=== PATIENT | male | born 1945 | race Caucasian/White ===

== ENCOUNTER 2020-11-28 17:57 | Inpatient (IN) ==
[2020-11-28] MEDS ORDERED: SODIUM CHLORIDE 0.9% 1,000 ML IV STA (18:47)
[2020-11-28] MEDS ORDERED: LIDOCAINE 1%/EPI INJ 20 ML VIAL ONE (18:55)
[2020-11-28] MEDS ORDERED: HEPARIN/NACL 0.9% 2 UNITS/ML 1,000 UNIT/500 ML BAG IV ONE (18:55)
[2020-11-28 18:58] LABS: Basophils # 0.1 10*3/uL (0.0-0.2); Basophils % 0.7 % (0.0-0.8); Eosinophils # 0.1 10*3/uL (0.0-0.87); Eosinophils % 1.1 % (0.00-10.9); Hematocrit 48.2 VOL% (42.0-52.0); Hemoglobin 15.9 GM/DL (14.0-18.0); Immature Granulocytes % 0.4 %; Immature Granulocytes Absolute 0.03 #; Lymphocytes # 1.5 10*3/uL (1.4-4.0); Lymphocytes % 20.7 % (21.2-54.2); Mean Corpuscular Volume 88.9 FL (87-102); Mean Platelet Volume 10.8 FL (9.6-12.0); Monocytes % 6.2 % (1.7-12.7); Neutrophils % 70.9 % (38.7-73.9); Platelet Count 159 T/CUMM (130-400); Red Blood Count 5.42 MC/CUMM (3.8-5.5); Red Cell Distribution Width 12.3 % (9.3-17.3); White Blood Count 7.2 T/CUMM (4-12)
[2020-11-28] MEDS ORDERED: fentaNYL 100 MCG/2 ML VIAL ONE (19:04)
[2020-11-28] MEDS ORDERED: MIDAZOLAM 2 MG/2 ML VIAL ONE (19:04)
[2020-11-28 19:10] LABS: Albumin 3.8 G/DL (3.4-5.0); Calcium 9.1 MG/DL (8.5-10.1); Osmolality,Calculated 281.5 MOS/KG (273-304); Potassium 4.4 MMOL/L (3.5-5.1); Total Protein 7.4 G/DL (6.4-8.2)
[2020-11-28] MEDS ORDERED: MAGNESIUM SULF RIDER 4 GM/100 ML PREMIX IV PRN (19:42)
[2020-11-28] MEDS ORDERED: DOCUSATE SODIUM 100 MG CAPSULE PO PRN (19:42)
[2020-11-28] MEDS ORDERED: MAGNESIUM SULF RIDER 2 GM/50 ML PREMIX IV PRN (19:42)
[2020-11-28] MEDS ORDERED: ACETAMINOPHEN 325 MG TABLET PO PRN (19:42)
[2020-11-28] MEDS ORDERED: POTASSIUM CHLORIDE 20 MEQ TABLET PO PRN (19:42)
[2020-11-28] MEDS ORDERED: MORPHINE 2 MG/1 ML SYRINGE IV PRN (19:42)
[2020-11-28] MEDS ORDERED: ONDANSETRON 4 MG/2 ML VIAL IV PRN (19:42)
[2020-11-28] MEDS ORDERED: DIAZEPAM 5 MG TABLET PO ONE (19:44)
[2020-11-28] MEDS ORDERED: diphenhydrAMINE CAP 25 MG CAPSULE PO ONE (19:44)
[2020-11-28] MEDS: DEXTROSE 5% NACL 0.45% 1,000 ML IV SCH (20:29)
[2020-11-28 21:23] LABS: INR 1.1; PT Patient Result 11.8 SECS (10.5-12.0); Partial Thromboplastin Time 29.2 SECS (23.8-32.1)
[2020-11-29 04:20] LABS: Basophils % 0.6 % (0.0-0.8); Eosinophils # 0.1 10*3/uL (0.0-0.87); Eosinophils % 0.8 % (0.00-10.9); Hematocrit 45.5 VOL% (42.0-52.0); Hemoglobin 15.1 GM/DL (14.0-18.0); Immature Granulocytes % 0.3 %; Immature Granulocytes Absolute 0.02 #; Lymphocytes # 1.5 10*3/uL (1.4-4.0); Lymphocytes % 22.6 % (21.2-54.2); Mean Corpuscular HGB Conc 33.2 GM/DL (32-36); Mean Corpuscular Volume 90.6 FL (87-102); Mean Platelet Volume 10.7 FL (9.6-12.0); Neutrophils % 66.7 % (38.7-73.9); Platelet Count 138 T/CUMM (130-400); Red Blood Count 5.02 MC/CUMM (3.8-5.5); Red Cell Distribution Width 12.6 % (9.3-17.3); White Blood Count 6.7 T/CUMM (4-12)
[2020-11-29 04:51] LABS: Albumin 3.5 G/DL (3.4-5.0); Bilirubin,Total 1.1 MG/DL (0.20-1.00); Calcium 8.5 MG/DL (8.5-10.1); Total Protein 6.4 G/DL (6.4-8.2)
[2020-11-29] MEDS ORDERED: diphenhydrAMINE CAP 25 MG CAPSULE PO ONE (06:00)
[2020-11-29] MEDS ORDERED: DIAZEPAM 5 MG TABLET PO ONE (06:00)
[2020-11-29] MEDS ORDERED: ceFAZolin 1,000 MG VIAL IRRIG ONE (07:13)
[2020-11-29] MEDS ORDERED: fentaNYL 100 MCG/2 ML VIAL ONE (07:57)
[2020-11-29] MEDS ORDERED: LIDOCAINE 1%/EPI INJ 20 ML VIAL ONE ×3 (07:57→08:52)
[2020-11-29] MEDS ORDERED: MIDAZOLAM 2 MG/2 ML VIAL ONE ×2 (07:57→09:16)
[2020-11-29] MEDS ORDERED: ceFAZolin 1,000 MG VIAL ONE (07:59)
[2020-11-29] MEDS ORDERED: HEPARIN/NACL 0.9% 2 UNITS/ML 1,000 UNIT/500 ML BAG IV ONE (08:22)
[2020-11-29] MEDS: DEXTROSE 5% NACL 0.45% 1,000 ML IV SCH ×2 (10:50→22:46)
[2020-11-29] MEDS ORDERED: hydrALAZINE 20 MG/1 ML VIAL IV PRN (11:06)
[2020-11-29] MEDS: amLODIPine 5 MG TABLET PO SCH (11:55)
[2020-11-29] MEDS: PANTOPRAZOLE 40 MG TABLET PO SCH (11:55)
[2020-11-30 05:40] LABS: Basophils % 0.5 % (0.0-0.8); Eosinophils # 0.1 10*3/uL (0.0-0.87); Eosinophils % 1.2 % (0.00-10.9); Hematocrit 44.9 VOL% (42.0-52.0); Hemoglobin 14.8 GM/DL (14.0-18.0); Immature Granulocytes % 0.3 %; Immature Granulocytes Absolute 0.02 #; Lymphocytes # 1.5 10*3/uL (1.4-4.0); Lymphocytes % 19.8 % (21.2-54.2); Mean Corpuscular Volume 91.6 FL (87-102); Mean Platelet Volume 10.6 FL (9.6-12.0); Neutrophils % 68.2 % (38.7-73.9); Platelet Count 115 T/CUMM (130-400); Red Cell Distribution Width 12.5 % (9.3-17.3); White Blood Count 7.5 T/CUMM (4-12)
[2020-11-30 06:19] LABS: Calcium 8.4 MG/DL (8.5-10.1); Osmolality,Calculated 279.5 MOS/KG (273-304); Potassium 3.8 MMOL/L (3.5-5.1)
[2020-11-30] MEDS: amLODIPine 5 MG TABLET PO SCH (09:35)
[2020-11-30] MEDS: PANTOPRAZOLE 40 MG TABLET PO SCH (09:35)
[2020-11-30 12:50] VITALS: BP 163/79
== END 2020-11-30 14:10 | disposition home or self-care (01) | DRG 244 ==
LOC: N.ED 17:57 → N.EDINP 18:48 → N.ICU 19:28 → N.TELEN 11-29 17:28
PROVIDERS: ADMIT Internal Medicine Interventional Cardiology; ATTEND Internal Medicine Interventional Cardiology